=== PATIENT | female | born 1995 | race Caucasian/White ===

== ENCOUNTER 2023-04-15 21:59 | Emergency (ER) | payer BC ==
[2023-04-15] MEDS ORDERED: Ondansetron 4 MG/2 ML SDV IVPUSH ONE (22:41)
[2023-04-15] MEDS ORDERED: Sodium Chloride 0.9% 1,000 ML IV ONE (22:41)
[2023-04-15 23:22] LABS: BASOPHILS ABSOLUTE AUTO 0.02 K/mm3 (0.01-0.08); BASOPHILS PERCENT AUTO 0.1 % (0.1-1.2); EOSINOPHILS ABSOLUTE AUTO 0.07 K/mm3 (0.04-0.36); EOSINOPHILS PERCENT AUTO 0.5 (0.7-5.8); HEMATOCRIT 39.9 % (34.1-44.9); HEMOGLOBIN 13.5 gm/dl (11.2-15.7); IMMATURE GRAN ABSOLUTE AUTO 0.03 K/mm3 (0.00-0.10); IMMATURE GRAN PERCENT AUTO 0.2 % (<=1.0); LYMPHOCYTES ABSOLUTE AUTO 2.05 K/mm3 (1.18-3.74); LYMPHOCYTES PERCENT AUTO 14.6 % (19.3-51.7); MEAN CORPUSCULAR HGB CONC 33.8 g/dl (32.2-35.5); MEAN CORPUSCULAR VOLUME 91.7 fl (79.4-94.8); MEAN PLATELET VOLUME 10.2 fl (9.4-12.3); MONOCYTES ABSOLUTE AUTO 0.92 K/mm3 (0.24-0.36); MONOCYTES PERCENT AUTO 6.6 % (4.7-12.5); NEUTROPHILS ABSOLUTE AUTO 10.94 K/mm3 (1.56-6.13); PLATELET COUNT,PLT 219 K/mm3 (182-369); RED BLOOD CELL COUNT 4.35 M/mm3 (3.98-5.22); WHITE BLOOD CELL COUNT,WBC 14.03 K/mm3 (3.98-10.04)
[2023-04-15 23:43] LABS: A/G RATIO 1.1 (1-2); ALBUMIN 3.2 g/dl (3.4-5.0); ANION GAP 13.1 (5-15); BILIRUBIN TOTAL 0.4 mg/dL (0.2-1.0); BUN/CREATININE RATIO 27.5 (14-18); CALCIUM 8.3 mg/dL (8.5-10.1); CREATININE 0.8 mg/dL (0.55-1.02); EST CRCL DRUG DOSING (CG) 104.67 mL/min
[2023-04-15 23:47] LABS: POTASSIUM,K 4.1 mEq/L (3.5-5.1)
== END 2023-04-16 00:38 | disposition home or self-care (01) ==
LOC: JD.ED 21:59
DX: T67.5XXA Heat exhaustion, unspecified, initial encounter (principal)
CPT/HCPCS: 36415; 80053; 82550; 85025; 96361; 96374; 99284; J2405; J7030